=== PATIENT | female | born 1955 | race Caucasian/White ===

== ENCOUNTER 2020-07-26 13:27 | Outpatient (REF) | payer OTHER, SELFPAY ==
[2020-07-26 17:05] LABS: Albumin Level 4.3 g/dL (3.5-5.0); Anion Gap 17 (12-20); Blood Urea Nitrogen 17 mg/dL (9-16); Calcium 8.9 mg/dL (8.4-10.2); Carbon Dioxide 25 mmol/L (22-29); Chloride 106 mmol/L (96-108); Estimated Glomerular Filt Rate 34; Glucose Random 91 mg/dL (60-115); Phosphorus 3.4 mg/dL (2.7-4.5); Potassium 4.6 mmol/l (3.3-5.1); Sodium 143 mmol/L (135-145)
[2020-07-26 17:29] LABS: Vitamin D 25-OH Total 25.8 ng/mL (>30)
[2020-07-27 21:43] LABS: Calcium (PTHI) 9.3 mg/dL (8.6-10.4); PTHI 49 pg/mL (14-64)
== END 2020-07-26 13:28 | disposition home or self-care (01) ==
LOC: HO.HMGCLDS 13:27
PROVIDERS: PCP Family Medicine; Visit Provider Family Medicine
DX: N18.9 Chronic kidney disease, unspecified (principal)
CPT/HCPCS: 80048; 82040; 82306; 83970; 84100

== ENCOUNTER 2020-09-05 14:26 | Outpatient (REF) | payer OTHER, SELFPAY ==
--- NOTE | 2020-09-05 | XR_ITS ---
EXAMINATION: XR KNEE, LEFT CLINICAL INFORMATION: Left knee pain. History of fall. COMPARISON: None TECHNIQUE: Four views of the left knee. FINDINGS: There is no fracture. No dislocation. No joint effusion. There is advanced tricompartment degenerative joint disease. There is joint narrowing and periarticular marginal bone spurs at all 3 joint space compartments. Most significantly affected joint space is the medial femoral tibial joint where there is [id number] contact of femur and tibia. XR/XR knee LT 4V IMPRESSION: 1. No acute abnormality. 2. Tricompartment degenerative joint disease.
--- NOTE | 2020-09-05 | XR_ITS ---
EXAMINATION: XR KNEE, RIGHT CLINICAL INFORMATION: Knee pain. History of multiple falls. COMPARISON: None TECHNIQUE: Four views of the right knee. FINDINGS: There is no fracture. There is no dislocation. There is no joint effusion. There is advanced tricompartment degenerative joint disease. There is joint narrowing and periarticular marginal bone spurs. Most significantly affected joint space is the medial femoral tibial joint where there is [id number] contact between the femur and tibia. XR/XR knee RT 4V IMPRESSION: 1. No acute abnormality. 2. Tricompartment degenerative joint disease.
--- NOTE | 2020-09-05 | XR_ITS ---
EXAMINATION: XR LUMBOSACRAL SPINE WITH OBLIQUES CLINICAL INFORMATION: Low back pain. Sciatica. History of fall. COMPARISON: MR lumbar spine 11/19/2006. KUB 10/08/2018 TECHNIQUE: 5 views FINDINGS: Lumbar vertebrae have normal height and alignment. No fracture. No focal bone destruction. There is degenerative spondylosis. There is multilevel disc height narrowing with vertebral endplate spurring and facet joint arthrosis which is most significant at the lower 3 lumbar discs levels. No spondylolysis or spondylolisthesis. Sacroiliac joints are normal. Compared to the MR exam lumbar spine of 2006 there has been progression of the degenerative changes of the lumbar spine. Bilateral ureteral stents present. There are 2 adjacent calcified stone in lower pole of right kidney. There is a 1.2 cm stone and a 0.9 cm stone. There are multiple clustered calcified stones at the lower pole left kidney which are not well seen due to overlapping stool. XR/XR lumbar spine 4V min IMPRESSION: 1. No acute abnormality. 2. Degenerative spondylosis of lumbar spine. 3. Bilateral ureteral stents. Bilateral renal stones.
== END 2020-09-05 14:27 | disposition home or self-care (01) ==
LOC: HO.HMGCX 14:26
PROVIDERS: PCP Family Medicine; Visit Provider Family Medicine
DX: M25.561 Pain in right knee (principal); M25.562 Pain in left knee
CPT/HCPCS: 72110; 73564

== ENCOUNTER 2020-09-11 14:32 | Outpatient (REF) | payer OTHER, SELFPAY ==
[2020-09-11 16:37] LABS: Imm Gran Abs Auto 0.04 X10*3/uL (0.00-0.03); Imm Gran Pct Auto 0.4 % (0.0-0.4); Mean Corpuscular Volume 102.7 fL (80-98); PLT CLUMP 1; SCAN SMEAR FLAG 1
[2020-09-11 16:39] LABS: Basophils Absolute Auto 0.1 X10*3/uL (0.0-0.2); Basophils Percent Auto 0.7 % (0-2); Eosinophils Absolute Auto 0.4 X10*3/uL (0.0-0.4); Eosinophils Percent Auto 4.1 % (0-4); Hematocrit 41.8 % (37-47); Hemoglobin 13.1 g/dl (12.0-16.0); Lymphocytes Absolute Auto 2.4 X10*3/uL (1.2-4.9); MANUAL DIFF FLAG NO; Mean Corpuscular HGB Conc 31.3 g/dl (31.0-35.0); Mean Corpuscular Hemoglobin 32.2 pg (27.0-33.0); Monocytes Absolute Auto 0.6 X10*3/uL (0.1-1.2); Monocytes Percent Auto 5.9 % (2-11); Neutrophils Absolute Auto 5.9 X10*3/uL (2.0-8.3); Neutrophils Percent Auto 62.9 % (45-73); Platelet Count 272 X10*3/uL (160-400); Red Blood Count 4.07 X10*6/uL (4.20-5.50); White Blood Count 9.3 X10*3/uL (4.8-10.8)
[2020-09-11 17:10] LABS: Albumin Level 4.3 g/dL (3.5-5.0); Anion Gap 15 (12-20); Blood Urea Nitrogen 19 mg/dL (9-16); Calcium 9.2 mg/dL (8.4-10.2); Carbon Dioxide 28 mmol/L (22-29); Chloride 105 mmol/L (96-108); Estimated Glomerular Filt Rate 34; Magnesium 2.1 mg/dL (1.6-2.6); Phosphorus 3.9 mg/dL (2.7-4.5); Potassium 5.6 mmol/l (3.3-5.1); Sodium 142 mmol/L (135-145)
[2020-09-11 19:16] LABS: Renal w Reflex Lab Use Only Order verified
[2020-09-11 19:30] LABS: Glucose Random 100 mg/dL (60-115)
[2020-09-12 15:52] LABS: Calcium (PTHI) 9.3 mg/dL (8.6-10.4); PTHI 62 pg/mL (14-64)
== END 2020-09-11 14:33 | disposition home or self-care (01) ==
LOC: HO.HMGCLDS 14:32
PROVIDERS: PCP Family Medicine; Visit Provider Internal Medicine Nephrology
DX: I12.9 Hypertensive chronic kidney disease with stage 1 through stage 4 chronic kidney disease, or unspecified chronic kidney disease (principal); N18.30 Chronic kidney disease, stage 3 unspecified; N20.0 Calculus of kidney; Z87.442 Personal history of urinary calculi
CPT/HCPCS: 36415; 80051; 82040; 82310; 82550; 82565; 82947; 83735; 83970; 84100; 84520; 85025

== ENCOUNTER 2020-10-11 15:12 | Outpatient (REF) | payer OTHER, SELFPAY ==
[2020-10-11 16:56] LABS: Anion Gap 18 (12-20); Blood Urea Nitrogen 27 mg/dL (9-16); Carbon Dioxide 21 mmol/L (22-29); Chloride 107 mmol/L (96-108); Estimated Glomerular Filt Rate 26; Glucose Random 118 mg/dL (60-115); Potassium 4.7 mmol/L (3.3-5.1); Sodium 141 mmol/L (135-145)
== END 2020-10-11 15:13 | disposition home or self-care (01) ==
LOC: HO.HMGCLDS 15:12
PROVIDERS: Absent Provider Internal Medicine Nephrology; PCP General Practice; Visit Provider General Practice
DX: M54.41 Lumbago with sciatica, right side (principal); I12.9 Hypertensive chronic kidney disease with stage 1 through stage 4 chronic kidney disease, or unspecified chronic kidney disease; N18.30 Chronic kidney disease, stage 3 unspecified; N20.0 Calculus of kidney; Z87.442 Personal history of urinary calculi
CPT/HCPCS: 36415; 80048

== ENCOUNTER 2021-01-19 13:54 | Outpatient (REF) | payer OTHER, SELFPAY ==
[2021-01-19 15:12] LABS: Hematocrit 42.6 % (37-47); Hemoglobin 13.4 g/dl (12.0-16.0); Mean Corpuscular HGB Conc 31.5 g/dl (31.0-35.0); Mean Corpuscular Hemoglobin 31.7 pg (27.0-33.0); Mean Corpuscular Volume 100.7 fL (80-98); Mean Platelet Volume 9.7 fL (9.4-12.3); Platelet Count 273 X10*3/uL (160-400); Red Blood Count 4.23 X10*6/uL (4.20-5.50); Red Cell Distribution Width 13.7 % (11.0-16.0); White Blood Count 10.1 X10*3/uL (4.8-10.8)
[2021-01-19 15:21] LABS: Anion Gap 16 (12-20); Blood Urea Nitrogen 18 mg/dL (9-16); Calcium 9.7 mg/dL (8.4-10.2); Carbon Dioxide 27 mmol/L (22-29); Chloride 104 mmol/L (96-108); Estimated Glomerular Filt Rate 29; Glucose Random 105 mg/dL (60-115); Potassium 4.4 mmol/L (3.3-5.1); Sodium 143 mmol/L (135-145)
[2021-01-19 15:23] LABS: Glucose Urine UA NEG (NEG); Leukocyte Esterase Urine 3+ (NEG); Nitrite Urine POS (NEG); Specific Gravity - Urine 1.015 (1.005-1.025); Urine Blood TRACE (NEG); Urine Ketones NEG (NEG); Urine Protein 1+ MG/DL (NEG-TRACE)
[2021-01-19 15:24] LABS: Appearance Urine CLOUDY; Color Urine YELLOW
[2021-01-19 15:28] LABS: Prothrombin Time 11.5 SEC (10.8-13.0)
[2021-01-19 15:57] LABS: Bacteria Urine 4+ /LPF; RBC Urine 0-2 /HPF (0); Squamous Epithelial Cell Urine 3+ /LPF
[2021-01-19 16:08] LABS: Estimated Average Glucose 97 mg/dL
== END 2021-01-19 13:55 | disposition home or self-care (01) ==
LOC: HO.HMGCLDS 13:54
PROVIDERS: PCP General Practice; Visit Provider Orthopaedic Surgery
DX: Z01.818 Encounter for other preprocedural examination (principal)
CPT/HCPCS: 36415; 80048; 81001; 83036; 85027; 85610; 87086; 87088; 87186

== ENCOUNTER 2021-03-22 13:37 | Emergency (ER) | payer OTHER, SELFPAY ==
--- NOTE | 2021-03-22 14:13 | ED_ITS ---
HPI - General Adult General Chief complaint: Cardiac Arrest/CPR Stated complaint: Cardiac Arrest Time Seen by Provider: 03/22/21 14:08 Source: EMS Mode of arrival: EMS Limitations: other (Cardiac arrest) History of Present Illness HPI narrative: 65 year old female brought to emergency department by EMS for a witnessed cardiac arrest. Report from the paramedics as the patient was going to [facility] for evaluation of COVID like symptoms. The patient apparently had a witnessed arrest on the street. Bystanders went into the building and medical personnel to assist. First responders did place automatic cardiac defibrillator which advised to shocks. When the paramedics arrived on the scene initially the patient was asystolic an after ACLS protocol the patient's rhythm changed to PEA with bradycardia. The paramedics state that they worked on the patient for approximately 15-20 minutes, she got 5 rounds of epinephrine, 1 g of calcium, she was intubated, and IO was placed. On presentation to the emergency department the patient was found to be initially in PEA with bradycardia. She was given multiple rounds of epinephrine and the patient went into pulseless V-tach. She was given amiodarone IV and she was defibrillated multiple times. The patient had no return of pulse or blood pressure after approximately 15 minutes ACLS/CPR. The patient was then pronounced at 1359. I do not have any medical records on this patient and there does not appear to be a next of kin in our system. There is a referral note to orthopedic that is scanned in the record. From this note the following past medical history was obtained: Kidney stones, chronic kidney disease, spinal stenosis, dysphagia, depression, back pain, cocaine use disorder. Left knee total knee replacement Related Data Allergies Allergy/AdvReac Type Severity Reaction Status Date / Time diazepam Allergy Unknown disoriented, Verified 11/14/16 00:00 falling adhesive [EKG/nicotine patch] Allergy Unknown redness/sor Uncoded 11/14/16 00:00 es Environmental Allergy Unknown Uncoded 11/14/16 00:00 Review of Systems Review of Systems: Yes Unobtainable due to mental condition (Cardiac arrest) [facility] Past Medical History [facility] Narrative: Past medical history: See HPI (spinal stenosis, dysphagia, kidney stones, chronic kidney disease, depression, back pain, cocaine use disord er. Surgical history: Unavailable. Social history: Unavailable Social History Social History Advance Directives: No Advance Directives Information Provided: Yes Physical Exam Vital Signs: Vital Signs: No pulse, no blood pressure, no spontaneous respirations Const: Other: Patient is intubated, CPR is in progress, she is pulseless HENMT: Head: Yes normal to inspection, Yes normocephalic and Yes atraumatic Eyes: Other: Pupils are fixed and dilated Neck: Other: No trauma, no ecchymosis Resp: Other: No spontaneous respirations, breath sounds are symmetric with bag-valve mask ventilation Cardio: Other: No heart sounds with auscultation GI: Other: Obese, abdomen appears to be distended, no bowel sounds Back/Spine/Pelvis: Other: No trauma Skin: Other: No rashes, lesions or petechiae Neuro: Other: No spontaneous movement Course Course Course Narrative: 65-year-old female brought to the emergency department by dejah cabrera for evaluation of a witnessed cardiac arrest. Paramedics reported that the patient was on her way to [facility] for evaluation of COVID like symptoms. The patient apparently had a witnessed arrest prior to getting into the facility. First responders did apply an automatic defibrillator and were advised to give 2 shocks. Paramedics initially found the patient to be asystolic and then in a PEA with bradycardia paramedics did at least 5 rounds of epinephrine, patient was also given calcium and they did deliver 1 shock. In the emergency department the patient was initially asystolic and then went into a pulseless V-tach, and she received multiple rounds of epinephrine, amiodarone and multiple shocks were delivered. The patient remained pulseless with no return of spontaneous circulation. The patient was then pronounced at 1:59 p.m. the patient was tested for COVID-19, influenza and RSV. I will contact the medical/surgery registered nurse. At this time I do not have any permission to contact next of kin however will try to get this information from [facility]. [id number]: ED staff was able to find a contact number for the family. Patient's daughter, Nay was contacted. The patient's family did come to the emergency department and 2 family members were placed in PPE and allowed to view the body. did positively identify the patient. The daughter did tell me that the patient was really not that ill and was just going to see her doctor for COVID- 19 test. The daughter was surprised that the patient had a cardiac arrest since the patient had no significant complaints prior to going to the doctor. Medical Decision Making Lab Data Labs: Lab Results 03/22/21 03/22/21 Range/Units 13:42 13:46 POC Glucose 163 H (60-115) mg/dL Coronavirus (PCR) POSITIVE A (Negative) Influenza Type A (PCR) NEGATIVE (Negative) Influenza Type B (PCR) NEGATIVE (Negative) RSV RNA Qual (PCR) NEGATIVE (Negative) Critical Care Time Critical Care Time Critical Care Time: Yes Total Critical Care Time: 35 Attestation: Critical Care: The patient was critically ill with a high prob ability of imminent or life threatening deterioration. I spent greater than 30 minutes of discontinuous time evaluating the patient,delivering critical care at the bedside, discussing and evaluating pertinent data with consultants. Critical care time does not include time spent performing separately billable procedures or teaching. Total time spent performing critical care was 35 minutes. Discharge Plan Discharge Clinical Impression: Cardiac arrest, COVID-19 virus infection Patient Disposition: Date/Time: 03/22/21 13:59
[2021-03-22 14:32] LABS: Influenza A PCR NEGATIVE (Negative); Influenza B PCR NEGATIVE (Negative); Resp Syncy Virus RNA Qual PCR NEGATIVE (Negative); SARS COV2 PCR INHOUSE POSITIVE (Negative)
--- NOTE | 2021-03-22 14:36 | PC.NURSE ---
SPOKE WITH [employer]. REFERENCE NUMBER [id number].
[2021-03-22 16:43] LABS: Glucose, Whole Blood 163 mg/dL (60-115)
== END 2021-03-22 19:30 | disposition expired ==
PROVIDERS: Emergency Provider Emergency Medicine Emergency Medical Services
DX: I46.9 Cardiac arrest, cause unspecified (principal); U07.1 COVID-19
CPT/HCPCS: 0241U; 36415; 82947; 96374; 96375; 99282; 99291; J0171; J0282